=== PATIENT | female | born 1990 | race Caucasian/White ===

== ENCOUNTER 2025-01-30 19:38 | Emergency (ER) | payer MEDICAID ==
[~2025-01-30] VITALS: Ht 160 cm; Wt 69.0 kg
[2025-01-30 19:43] VITALS: BP 144/81; PULSE 97; RESP 16; TEMP 36.7; O2SAT 100; O2SAT 99
[2025-01-30 22:43] LABS: CLARITY URINE CLEAR (CLEAR); COLOR URINE YELLOW (YELLOW); GLUCOSE URINE 3+ (NEGATIVE); KETONES URINE NEGATIVE (NEGATIVE); LEUKOCYTE ESTERASE URINE 2+ (NEGATIVE); NITRITE URINE NEGATIVE (NEGATIVE); OCCULT BLOOD URINE NEGATIVE (NEGATIVE); PROTEIN URINE NEGATIVE (NEGATIVE); SPECIFIC GRAVITY URINE 1.031 (1.005-1.030); UROBILINOGEN URINE 0.2 E.U./dL (0.2-1.0)
[2025-01-30 22:53] LABS: BACTERIA URINE TRACE; RBC URINE 0-2 /hpf (0-2); SQUAMOUS EPITHELIAL CELL URINE FEW /lpf (RARE/1+)
[2025-01-30 23:38] LABS: BASOPHILS % 0.7 % (0.0-2.0); EOSINOPHILS % 2.7 % (0.0-5.0); HEMATOCRIT. 34.2 % (36.0-48.0); HEMOGLOBIN. 11.6 g/dL (12.0-16.0); LYMPHOCYTES % 33.5 % (20.0-50.0); MEAN CORPUSCULAR HEMOGLOBIN 28.9 pg (28.0-32.0); MEAN CORPUSCULAR HGB CONC 33.9 g/dL (31.0-37.0); MEAN CORPUSCULAR VOLUME 85.4 fL (81.0-99.0); MEAN PLATELET VOLUME 10.8 fl (7.4-10.4); MONOCYTES % 6.3 % (2.0-8.0); NEUTROPHILS % 56.8 % (40.0-76.0); PLATELET 250 x1000/uL (130-400); RED CELL DISTRIBUTION WIDTH 12.9 % (11.6-14.6); WHITE BLOOD COUNT 7.1 x1000/uL (4.5-11.0)
[2025-01-30 23:56] LABS: CHLORIDE 104 mEq/L (98-107); SODIUM 140 mEq/L (136-145)
[2025-01-30 23:57] LABS: CARBON DIOXIDE 28 mEq/L (21-32)
[2025-01-31 00:02] LABS: CREATININE 0.9 mg/dL (0.6-1.0); GLUCOSE 257 mg/dL (70-105); UREA NITROGEN BLOOD 11 mg/dL (9-23)
[2025-01-31 00:34] LABS: TROPONIN I HIGH SENSITIVITY < 4 ng/L (3.0-34)
[2025-01-31] MEDS ORDERED: TOPUD MT (00:43)
[2025-01-31] MEDS ORDERED: NITR-87 MT (02:23)
== END 2025-01-31 01:05 | disposition home or self-care (01) ==
LOC: ER 19:38
DX: E11.65 Type 2 diabetes mellitus with hyperglycemia (principal); R07.89 Other chest pain; Z98.890 Other specified postprocedural states
CPT/HCPCS: 36415; 71045; 80048; 81003; 84484; 85025; 93005; 99285

== ENCOUNTER 2025-03-22 18:20 | Emergency (ER) | payer MEDICAID, OTHER ==
[~2025-03-22] VITALS: Ht 160 cm; Wt 78.0 kg
[~2025-03-22 18:20] MED LIST: NITR-87 MT; TOPUD MT
[2025-03-22 18:26] VITALS: O2SAT 99
[2025-03-22 19:17] LABS: CLARITY URINE CLOUDY (CLEAR); COLOR URINE RED (YELLOW); GLUCOSE URINE 3+ (NEGATIVE); KETONES URINE NEGATIVE (NEGATIVE); LEUKOCYTE ESTERASE URINE 1+ (NEGATIVE); NITRITE URINE NEGATIVE (NEGATIVE); OCCULT BLOOD URINE 3+ (NEGATIVE); PROTEIN URINE 1+ (NEGATIVE); SPECIFIC GRAVITY URINE 1.033 (1.005-1.030); UROBILINOGEN URINE 0.2 E.U./dL (0.2-1.0)
[2025-03-22 19:32] LABS: RBC URINE 25-50 /hpf (0-2); SQUAMOUS EPITHELIAL CELL URINE FEW /lpf (RARE/1+)
[2025-03-22 19:33] LABS: BACTERIA URINE 1+
[2025-03-22] MEDS: HYDROCODONE/ACETAMINOPHEN 10/325MG TABLET PO ONE (19:55)
[2025-03-22 19:56] LABS: BASOPHILS % 0.7 % (0.0-2.0); HEMATOCRIT. 37.4 % (36.0-48.0); HEMOGLOBIN. 12.7 g/dL (12.0-16.0); LYMPHOCYTES % 26.3 % (20.0-50.0); MEAN CORPUSCULAR HEMOGLOBIN 28.3 pg (28.0-32.0); MEAN CORPUSCULAR HGB CONC 33.8 g/dL (31.0-37.0); MEAN CORPUSCULAR VOLUME 83.6 fL (81.0-99.0); MEAN PLATELET VOLUME 11.6 fl (7.4-10.4); MONOCYTES % 5.3 % (2.0-8.0); NEUTROPHILS % 66.7 % (40.0-76.0); PLATELET 239 x1000/uL (130-400); RED BLOOD CELL COUNT 4.47 mill/uL (4.2-5.4); RED CELL DISTRIBUTION WIDTH 13.6 % (11.6-14.6)
[2025-03-22 20:00] LABS: CHLORIDE 99 mEq/L (98-107); POTASSIUM 3.7 mEq/L (3.5-5.1); SODIUM 135 mEq/L (136-145)
[2025-03-22 20:01] LABS: CALCIUM 9.9 mg/dL (8.7-10.4); CARBON DIOXIDE 27 mEq/L (21-32)
[2025-03-22 20:02] LABS: INR 0.9
[2025-03-22 20:06] LABS: CREATININE 0.9 mg/dL (0.6-1.0); HCG SCREEN NEGATIVE
[2025-03-22 20:07] LABS: UREA NITROGEN BLOOD 9 mg/dL (9-23)
[2025-03-22 20:08] LABS: ALANINE AMINOTRANSFERASE 34 IU/L (10-49); ALBUMIN 4.9 g/dL (3.2-4.8); ASPARTATE AMINOTRANSFERASE 19 IU/L (<34); BILIRUBIN DIRECT 0.1 mg/dL (<=3.0)
[2025-03-22 20:09] LABS: BILIRUBIN TOTAL 0.5 mg/dL (0.1-1.0); PROTEIN TOTAL 8.3 g/dL (6.0-8.3)
[2025-03-22 20:28] LABS: GLUCOSE 413 mg/dL (70-105)
[2025-03-22 22:10] VITALS: BP 123/88; PULSE 77; RESP 16; TEMP 36.7; O2SAT 99
[2025-03-22] MEDS ORDERED: IBUP-2030 MT (22:10)
[2025-03-22] MEDS ORDERED: CYCL5TAB3 MT (22:10)
[2025-03-22] MEDS ORDERED: IBUPROFEN 800MG TABLET PO ONE (22:15)
== END 2025-03-22 22:15 | disposition home or self-care (01) ==
LOC: ER 18:20
DX: M54.2 Cervicalgia (principal); R07.89 Other chest pain; R51.9 Headache, unspecified; E11.65 Type 2 diabetes mellitus with hyperglycemia; V47.5XXA Car driver injured in collision with fixed or stationary object in traffic accident, initial encounter; Y93.89 Activity, other specified; Y92.410 Unspecified street and highway as the place of occurrence of the external cause; Y99.8 Other external cause status
CPT/HCPCS: 36415; 71250; 74176; 80048; 80076; 81003; 81025; 84703; 85025; 99284